=== PATIENT | male | born 1965 | race Caucasian/White ===

== ENCOUNTER 2016-11-11 07:15 | Day surgery (SDC) | payer MEDICARE ==
--- NOTE | 2016-11-11 08:12 | Anesthesia Day of Surgery ---
Anesthesia Day of Surgery - Day of Surgery Patient Examined: Yes Patient H&P Reviewed: Yes Patient is NPO: Yes Beta Blockers: Yes Cardiac Clearance: No Pulmonary Clearance: No
--- NOTE | 2016-11-11 08:13 | Anesthesia Consultation ---
Anesthesia Consult and Med Hx Date of service: 11/11/16 - Airway Anesthetic Teeth Evaluation: Poor ROM Head & Neck: Adequate Mental/Hyoid Distance: Adequate Mallampati Class: Class II Intubation Access Assessment: Possibly Difficult - Pulmonary Exam CTA: Yes (clear) - Cardiac Exam Cardiac Exam: RRR - Pre-Operative Health Status ASA Pre-Surgery Classification: ASA4 Proposed Anesthetic Plan: MAC - Pulmonary Hx Asthma: No COPD: No Hx Pneumonia: No - Cardiovascular System Hx Hypertension: Yes Hx Coronary Artery Disease: Yes Hx Pacemaker: Yes Hx Internal Defibrillator: Yes - Endocrine Hx End Stage Renal Disease: No - Other Systems Hx Cancer: No
[2016-11-11] MEDS: NACL 0.9% 1000 ML 1,000 ML IV SCH ×2 (08:40→12:43)
[2016-11-11] MEDS ORDERED: AMIDATE IV ONE (12:10)
[2016-11-11] MEDS ORDERED: DIPRIVAN 10 MG/ML IV ONE ×2 (12:10)
--- NOTE | 2016-11-11 12:16 | Event Note ---
Date: 11/11/16 Pt seen and examined. Pt is at moderate cardiovascular risk for colonoscopy. There are no immediate contraindications to proceeding with procedure today. Dr. Browning and Dr. Auguste updated. Recommend close cardiac monitoring. Full consult to follow. Liz ZAMORA NP / DR. WATSON
[2016-11-11] MEDS ORDERED: XYLOCAINE MPF 2% ONE (12:21)
--- NOTE | 2016-11-11 12:39 | Short Stay Summary ---
Short Stay Documentation Date of service: 11/11/16 - History H&P: obtained from office - Allergies and Medications Current Medications: Allergies No Known Allergies Allergy (Verified 03/28/14 17:12) Home Medications Medication Instructions Recorded Confirmed Last Taken Type Carvedilol [Coreg] 3.125 mg PO BID #60 tablet 03/30/14 11/11/16 11/10/16 Rx Furosemide [Lasix] 40 mg PO BID #60 tablet 03/30/14 11/11/16 11/10/16 Rx Lisinopril [Zestril TAB] 5 mg PO QDAY 30 Days 03/30/14 11/11/16 11/10/16 Rx Allopurinol [Zyloprim] 100 mg PO QDAY 11/11/16 11/11/16 11/10/16 History Atorvastatin Calcium [Lipitor] 20 mg PO QDAY 11/11/16 11/11/16 11/10/16 History Exenatide [Byetta] 5 mcg SQ QWEEK 11/11/16 11/11/16 11/10/16 History Active Medications Sodium Chloride (Nacl 0.9% 1000 Ml) 1,000 mls @ 50 mls/hr IV DIRECT MANUEL Last Admin: 11/11/16 08:40 Dose: 50 mls/hr - Brief post op/procedure progress note Date of procedure: 11/11/16 Findings: see dictated report Estimated blood loss: none Pathology: none Condition: stable - Disposition Condition at discharge: Good Disposition: DISCHARGED TO HOME OR SELFCARE - Discharge Diagnoses (1) Colon cancer screening Status: Acute Short Stay Discharge Plan Activity: other (no driving for 24 hours) Weight Bearing Status: Full Weight Bearing Diet: regular Follow up with: PRIMARY CAREMD [Primary Care Provider] - 7 Days
--- NOTE | 2016-11-11 12:40 | Operative Report ---
Operative Report Operative Report: Date of procedure: 11/11/2016 Preprocedure diagnosis: Colon cancer screening, average risk. No prior studies. Post procedure diagnosis: Normal study. Procedure: Colonoscopy to the cecum Endoscopist: Dr. Auguste Anesthesia: Monitored anesthesia care per anesthesia department Estimated blood loss: 0 Medications: Monitored anesthesia care. See separate report by anesthesia for details. After careful discussion of the nature and purpose of the procedure as well as details of the technique risks benefits and alternatives the patient gave consent. Please see recent history and physical from the office. The patient was placed in the left lateral decubitus position and medicated per anesthesia. A rectal exam was performed sphincter tone was normal there were no masses palpable. The [employer] 570 scope was passed transanally and advanced under continuous direct vision without difficulty to the cecum. The colon was well prepared. The cecum was normal. The ascending colon was normal and on forward and retroflexed views. The transverse colon, descending colon, and sigmoid colon were normal. The rectum was normal on forward and retroflexed views. The procedure was well-tolerated overall and the patient was observed in recovery. Conclusions: Normal colonoscopy to the cecum. Plan: Repeat colonoscopy in 10 years, sooner if clinically indicated. Signed electronically: Velasquez Auguste M.D.
--- NOTE | 2016-11-11 12:46 | Post Anesthesia Evaluation ---
- Post Anesthesia Evaluation Patient Participated: Yes Airway Patent: Yes Stable Respiratory Function: Yes Nausea/Vomiting: No Temp > 96.8F: Yes Pain Manageable: Yes Adequeate Hydration: Yes Anesthesia Complications: No Block Receding Appropriately: Not Applicable Patient on Ventilator: No
[2016-11-11 13:02] VITALS: BP 135/64
--- NOTE | 2016-11-11 13:40 | Consultation ---
History of Present Illness Consult date: 11/11/16 Requesting physician: MYCHAL AZEVEDO Consult reason: known to you, other (pre-op clearance ) History of present illness: The patient is a 51 YO male who has a past medical history significant for NICMP, AICD in situ (placed in [place] in 2012), HTN, HLP, DM, and noncompliance with OP follow up. He has been seen in the past in our office by Dr. Edge - he was last seen in 09/2015. He presented for scheduled, elective colonoscopy. He does not speak Vincentian and HPI and ROS are obtained through his daughter at bedside. He denies any cardiac complaints and reports that he has been in his normal state of health recently. He denies any AICD discharges. Cardiology was consulted for pre-procedural clearance. Past History Past Medical History: diabetes, hypertension, hyperlipidemia, other (NICMP; AICD in situ) Medications and Allergies Allergies Allergy/AdvReac Type Severity Reaction Status Date / Time No Known Allergies Allergy Verified 03/28/14 17:12 Home Medications Medication Instructions Recorded Confirmed Last Taken Type Carvedilol [Coreg] 3.125 mg PO BID #60 tablet 03/30/14 11/11/16 11/10/16 Rx Furosemide [Lasix] 40 mg PO BID #60 tablet 03/30/14 11/11/16 11/10/16 Rx Lisinopril [Zestril TAB] 5 mg PO QDAY 30 Days 03/30/14 11/11/16 11/10/16 Rx Allopurinol [Zyloprim] 100 mg PO QDAY 11/11/16 11/11/16 11/10/16 History Atorvastatin Calcium [Lipitor] 20 mg PO QDAY 11/11/16 11/11/16 11/10/16 History Exenatide [Byetta] 5 mcg SQ QWEEK 11/11/16 11/11/16 11/10/16 History Active Meds: Active Medications Sodium Chloride (Nacl 0.9% 1000 Ml) 1,000 mls @ 50 mls/hr IV DIRECT MANUEL Last Admin: 11/11/16 12:43 Dose: 50 mls/hr Review of Systems Constitutional: no weight loss, no weight gain, no fever, no chills Ears, nose, mouth and throat: no ear pain, no ear discharge, no nasal congestion , no nasal discharge, no sinus pressure, no sinus pain, no epistaxis, no bleeding gums, no dental pain, no mouth pain, no dysphagia, no hoarseness, no sore throat Cardiovascular: no chest pain, no orthopnea, no palpitations, no rapid/ irregular heart beat, no edema, no syncope, no lightheadedness, no shortness of breath, no dyspnea on exertion, no paroxysmal nocturnal dyspnea, no decreased exercise tolerance Respiratory: no cough, no congestion, no wheezing, no pain Gastrointestinal: no abdominal pain, no nausea, no vomiting, no diarrhea, no constipation, no change in bowel habits Genitourinary Male: no dysuria, no hematuria, no flank pain, no discharge, no urinary frequency, no urinary hesitancy Musculoskeletal: no neck stiffness, no neck pain, no shooting arm pain, no arm numbness/tingling, no low back pain, no shooting leg pain, no leg numbness/ tingling, no redness of joints Integumentary: no rash, no pruritis, no redness, no sores, no wounds Neurological: no head injury, no paralysis, no weakness, no parathesias, no numbness, no tingling, no seizures, no syncope, no lack of coordination Psychiatric: no anxiety Endocrine: no cold intolerance, no heat intolerance Hematologic/Lymphatic: no easy bruising, no easy bleeding, no lymphadenopathy Allergic/Immunologic: no urticaria, no wheezing, no persistent infections Physical Examination Vital Signs Temp Pulse Resp BP Pulse Ox 98.0 F 83 15 146/65 97 11/11/16 08:14 11/11/16 08:14 11/11/16 08:14 11/11/16 08:14 11/11/16 08:14 General appearance: no acute distress HEENT: Positive: PERRL, Normocephaly, Mucus Membranes Moist Neck: Positive: neck supple, trachea midline Cardiac: Positive: Reg Rate and Rhythm, S1/S2 Lungs: Positive: Normal Exam, clear to auscultation, Normal Breath Sounds Neuro: Positive: Grossly Intact, Cranial Nerve 2-12 Intact Abdomen: Positive: Unremarkable, Soft, Active Bowel Sounds. Negative: Tender Skin: Positive: Clear. Negative: Rash, Wound Musculoskeletal: No Fluid Collection, No Pain, Normal Range of Motion Extremities: Present: normal, upper extr. pulses, lower extr. pulses. Absent: edema Results - Imaging and Cardiology Echo: report reviewed (03/2014: EF 25-30%, moderate LVH, moderate AR, mild MR, mild TR) EKG: report reviewed EKG interpretations - Telemetry EKG Rhythm: Paced Pacemaker: ventricular pacing w/capt, normal atrial sensing Assessment and Plan Assessment: NICMP, AICD in situ HTN HLP DM Moderate AR / mild MR / mild TR Noncompliance with OP follow up Plan: 12-lead EKG reviewed with NAF - atrial sensing and ventricular paced rhythm, biventricular pacing detected. Currently stable cardiac status. Pt is currently at moderate cardiovascular risk for colonoscopy. There are no immediate cardiac contraindications to proceeding with procedure today. Will see PRN. Recommend follow up in our office with Dr. Edge within 1-2 weeks. Pt's daughter provided phone number to our answering service and states she will call and make pt appt. Assessment and plan reviewed with pt and pt's daughter at bedside. The patient has been seen in conjunction with Dr. Edge who agrees with the assessment and plan of care.
== END 2016-11-11 07:16 | disposition home or self-care (01) ==
LOC: GIO 07:15
PROVIDERS: ATTEND Internal Medicine Gastroenterology
DX: Z12.11 Encounter for screening for malignant neoplasm of colon (principal); I50.9 Heart failure, unspecified; E11.9 Type 2 diabetes mellitus without complications; E78.5 Hyperlipidemia, unspecified; I25.10 Atherosclerotic heart disease of native coronary artery without angina pectoris; Z95.810 Presence of automatic (implantable) cardiac defibrillator; Z79.899 Other long term (current) drug therapy; Z80.3 Family history of malignant neoplasm of breast; Z83.3 Family history of diabetes mellitus
CPT/HCPCS: 82962; 93005; 93010; G0121; J2704; J7030